=== PATIENT | male | born 1950 ===

== ENCOUNTER 2020-06-11 14:45 | Emergency (ER) | payer OTHER ==
[~2020-06-11] VITALS: Ht 180.3 cm; Wt 65.9 kg
[2020-06-11 15:09] VITALS: BP 151/91; Ht 180.3 cm; Wt 65.9 kg
[2020-06-11] MEDS ORDERED: MUPIROCIN22 GM TOPICAL (15:56)
== END 2020-06-11 16:32 | disposition home or self-care (01) ==
LOC: D.ER 14:45
DX: S01.81XA Laceration without foreign body of other part of head, initial encounter (principal); W10.9XXA Fall (on) (from) unspecified stairs and steps, initial encounter; S09.90XA Unspecified injury of head, initial encounter; K21.9 Gastro-esophageal reflux disease without esophagitis